=== PATIENT | male | born 1960 ===

== ENCOUNTER 2016-12-24 09:38 | Observation (INO) | payer MEDICAID, SELFPAY ==
[2016-12-24 11:32] LABS: BASO % 0.6 % (0.0-2.0); EOS # 0.2 K/uL (0.0-0.7); EOS % 1.9 % (0.0-4.0); LYMPH # 1.1 K/uL (1.0-4.3); LYMPH % 13.8 % (20.0-40.0); MEAN CELL VOLUME 89.5 fL (80.0-94.0); MEAN CORPUSCULAR HEMOGLOBIN 30.3 pg (27.0-31.0); MEAN CORPUSCULAR HGB CONC 33.8 g/dL (33.0-37.0); MEAN PLATELET VOLUME 7.8 fL (7.2-11.7); MONO # 0.5 K/uL (0.0-0.8); NEUT # 6.4 K/uL (1.8-7.0); NEUT % 77.7 % (50.0-75.0); RBC 5.27 Mil/uL (4.40-5.90); RED CELL DISTRIBUTION WIDTH 13.4 % (11.5-14.5); WHITE BLOOD COUNT 8.3 K/uL (4.8-10.8)
[2016-12-24 11:39] LABS: PROTHROMBIN TIME 11.7 SECONDS (9.7-12.2)
[2016-12-24 11:45] LABS: ALBUMIN 4.3 g/dL (3.5-5.0)
[2016-12-24 11:47] LABS: GFR AFRICAN-AMERICAN > 60; GFR NON-AFRICAN AMERICAN > 60
[2016-12-24 11:48] LABS: ALB/GLOB RATIO 1.1 (1.0-2.1); ALT/SGPT 36 U/L (21-72); AST/SGOT 21 U/L (17-59); BLOOD UREA NITROGEN 15 mg/dL (9-20)
[2016-12-24 11:49] LABS: CALCIUM 9.8 mg/dl (8.6-10.4)
--- NOTE | 2016-12-24 12:08 | C.PDOC ---
History Of Present Illness 56 year old male who presents to the ER with a complaint of left sided chest pain worsening over the past 2 days. Patient reports that the pain is L sided with some radiation to the back. He reports that the pain is worse with exertion and movement. Patient reports a syncopal episode 1 week ago while using the bathroom; he notes he did not go for an evaluation. Patient also reports he has not followed up with optical coating technician for his symptoms. Denies SOB, headache, nausea, vomiting, abdominal pain Time Seen by Provider: 12/24/16 11:38 Chief Complaint (Nursing): Chest Pain History Per: Patient History/Exam Limitations: no limitations Onset/Duration Of Symptoms: Days Current Symptoms Are (Timing): Still Present Associated Symptoms: Syncope (1 week ago). denies: Nausea, Dyspnea, Diaphoresis Modifying Factors: None Exacerbating Factors: None Alleviating Factors: None Recent travel outside of the [place]: No Past Medical History Reviewed: Historical Data, Nursing Documentation, Vital Signs Vital Signs: Last Vital Signs Temp 98.2 F 12/24/16 15:35 Pulse 70 12/24/16 15:35 Resp 18 12/24/16 15:35 BP 116/82 12/24/16 15:35 Pulse Ox 99 12/24/16 16:54 - Medical History PMH: No Chronic Diseases Surgical History: Appendectomy Family History: States: Unknown Family Hx - Social History Hx Tobacco Use: No Hx Alcohol Use: No Hx Substance Use: No - Immunization History Hx Tetanus Toxoid Vaccination: No Hx Influenza Vaccination: No Hx Pneumococcal Vaccination: No Review Of Systems Constitutional: Negative for: Fever, Chills Cardiovascular: Positive for: Chest Pain, Light Headedness (syncope last week). Negative for: Palpitations, Edema Respiratory: Negative for: Cough, Shortness of Breath, SOB with Excertion, Wheezing Gastrointestinal: Negative for: Nausea, Vomiting, Abdominal Pain, Diarrhea, Constipation Genitourinary: Negative for: Dysuria Musculoskeletal: Negative for: Neck Pain, Back Pain Neurological: Negative for: Weakness, Numbness Physical Exam - Physical Exam Appears: Well, Non-toxic Skin: Normal Color, Warm, Dry Head: Atraumatic, Normacephalic Eye(s): bilateral: Normal Inspection, PERRL, EOMI Oral Mucosa: Moist Neck: Normal, Supple Chest: Symmetrical, No Tenderness Cardiovascular: Rhythm Regular, No Murmur Respiratory: Normal Breath Sounds, No Rales, No Rhonchi, No Wheezing Gastrointestinal/Abdominal: Soft, No Tenderness, No Mass, No Distention Back: Normal Inspection Extremity: Normal ROM Neurological/Psych: Oriented x3, Normal Speech, Normal Cognition Gait: Steady ED Course And Treatment - Laboratory Results Result Diagrams: 12/24/16 11:26 12/24/16 11:26 ECG: Interpreted By Me, Viewed By Me ECG Rhythm: Sinus Rhythm ECG Interpretation: Normal Interpretation Of ECG: Normal intervals, no ST/T changes. Rate From EC O2 Sat by Pulse Oximetry: 99 (Room air) Pulse Ox Interpretation: Normal Medical Decision Making Medical Decision Making: Blood work and CXR ordered. Aspirin administered. Differential Pneumothorax vs ACS vs PE Cxray negative. Trop x 1 negative. CTA negative for dissection or PE. Patient denies Hx of HTN, DM, tobacco use, or cocaine use and ekg shows NSR at 71 bpm with normal intervals and no ST changes. Chest pain is worse with exertion vs movement that could be musculoskeletal vs cardiac etiology. Patient has recent syncope, which could be vasovagal but could be cardiac etiology. Patient has no insurance and unable to follow-up with any doctor, therefore will transfer to tele observation. Dr. Freeman, hospitalist aware. Disposition - Disposition Disposition: HOSPITALIZED Disposition Time: 09:52 Condition: FAIR - Clinical Impression Clinical Impression: Chest pain - Scribe Statement The provider has reviewed the documentation as recorded by the Scribe Juan Alberto Ruiz All medical record entries made by the Scribe were at my direction and personally dictated by me. I have reviewed the chart and agree that the record accurately reflects my personal performance of the history, physical exam, medical decision making, and the department course for this patient. I have also personally directed, reviewed, and agree with the discharge instructions and disposition.
--- NOTE | 2016-12-24 12:40 | RAD ---
HISTORY: chest pain COMPARISON: No prior. TECHNIQUE: Chest PA and lateral FINDINGS: LUNGS: Poor inspiration with low lung with volumes, mild crowded bronchovascular markings and mild bibasilar atelectasis PLEURA: No significant pleural effusion identified. No pneumothorax apparent. CARDIOVASCULAR: Normal. OSSEOUS STRUCTURES: No significant abnormalities. VISUALIZED UPPER ABDOMEN: Normal. OTHER FINDINGS: None. IMPRESSION: Poor inspiration with low lung with volumes, mild crowded bronchovascular markings and mild bibasilar atelectasis
--- NOTE | 2016-12-24 15:27 | CT ---
PROCEDURE: CT Chest with contrast (Pulmonary Angiogram) HISTORY: chest pain COMPARISON: None available. TECHNIQUE: Axial computed tomography images were obtained of the chest in the pulmonary arterial phase of enhancement. Coronal and sagittal reformatted images were created and reviewed. Intravenous contrast dose: 100 mL Visipaque 320 Radiation dose: Total exam DLP = 520.27 mGy-cm. This CT exam was performed using one or more of the following dose reduction techniques: Automated exposure control, adjustment of the mA and/or kV according to patient size, and/or use of iterative reconstruction technique. FINDINGS: PULMONARY ARTERIES: Unremarkable. No pulmonary embolism. AORTA: No acute findings. No thoracic aortic aneurysm. LUNGS: Unremarkable. No nodule, mass or pulmonary consolidation. PLEURAL SPACES: Unremarkable. No effusion or pneuomothorax. HEART: Unremarkable. No cardiomegaly. No significant pericardial effusion. LYMPH NODES: No lymphadenopathy. BONES, CHEST WALL: Unremarkable. No fracture or destructive lesion OTHER FINDINGS: Unremarkable. IMPRESSION: No evidence of pulmonary embolism. Unremarkable CT examination of the chest.
--- NOTE | 2016-12-24 18:04 | CP.PCM.HP ---
<AbNancy LambertStephanie - Last Filed: 12/24/16 17:53> History of Present Illness - History of Present Illness History of Present Illness: cc: chest and back pain Patient is a 56 M who comes into the ED for chest and back pain for the past 3 days. Last week patient had a syncopal episode with loss of consciousness. Patient was sitting on the toilet and fell onto the floor. Girlfriend heard the fall and thinks patient was out for less than 2 minutes. Patient remembered falling and was not confused when he woke up. 911 was called and EMS came. Systolic BP was 170. Patient decided not to go to ED. Two days later the chest pain started. The pain is reproduced in the chest and back when he turns his body to the left. Patient denies headache, dizziness, change in vision, shortness of breath, palpitations, nausea, vomiting, constipation, or diarrhea. PMD: Dr. 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 absent: Chest Pain with Activity, Claudication, Diaphoresis, Edema - Respiratory Respiratory: absent: Pain on Inspiration, Chest Congestion - Gastrointestinal Gastrointestinal: absent: Abdominal Pain, Bloating, Change in Stool Character, Constipation, Cramping, Diarrhea - Genitourinary Genitourinary: absent: Change in Urinary Stream, Difficulty Urinating, Urinary Incontinence, Urinary Hesitance, Urinary Urgency - Musculoskeletal Musculoskeletal: Muscle Cramps. absent: Muscle Weakness, Stiffness - Integumentary Integumentary: absent: Changing Lesions, Rash - Neurological Neurological: Syncope. absent: Dizziness, Headaches, Loss of Vision, Vertigo - Endocrine Endocrine: absent: Change in Body Appearance, Deepening of Voice - Hematologic/Lymphatic Hematologic: absent: Easy Bleeding, Easy Bruising, Lymphadenopathy Past Patient History - Past Social History Smoking Status: Never Smoked - INTEGUMENTARY Hx Psoriasis: Yes - PSYCHIATRIC Hx Substance Use: No - SURGICAL HISTORY Hx Appendectomy: Yes - ANESTHESIA Hx Anesthesia: Yes Hx Anesthesia Reactions: No Meds Allergies/Adverse Reactions: Allergies Allergy/AdvReac Type Severity Reaction Status Date / Time No Known Allergies Allergy Unverified 06/12/14 12:00 Physical Exam - Constitutional Appears: Well, Non-toxic, No Acute Distress - Head Exam Head Exam: ATRAUMATIC, NORMAL INSPECTION, NORMOCEPHALIC - Eye Exam Eye Exam: EOMI, Normal appearance, PERRL - ENT Exam ENT Exam: Mucous Membranes Moist, Normal Exam - Neck Exam Neck exam: Positive for: Normal Inspection - Respiratory Exam Respiratory Exam: Clear to Auscultation Bilateral, NORMAL BREATHING PATTERN. absent: Rales, Rhonchi, Wheezes, Respiratory Distress, Stridor - Cardiovascular Exam Cardiovascular Exam: REGULAR RHYTHM, RRR. absent: Gallop, Rubs, Systolic Murmur Additional comments: chest and back pain reproduced when turning left - GI/Abdominal Exam GI & Abdominal Exam: Normal Bowel Sounds. absent: Distended, Firm, Guarding - Extremities Exam Extremities exam: Positive for: normal inspection. Negative for: calf tenderness, pedal edema, tenderness - Back Exam Back exam: NORMAL INSPECTION Additional comments: left subscapular tenderness - Psychiatric Exam Psychiatric exam: Normal Affect, Normal Mood - Skin Skin Exam: Intact, Normal Color, Warm Results - Vital Signs Recent Vital Signs: Last Vital Signs Temp 97.8 F 12/24/16 17:06 Pulse 74 12/24/16 17:06 Resp 18 12/24/16 17:06 BP 121/77 12/24/16 17:06 Pulse Ox 97 12/24/16 17:06 - Labs Result Diagrams: 12/24/16 11:26 12/24/16 11:26 Assessment & Plan - Assessment and Plan (Free Text) Assessment: 1. Chest Pain admit to telemetry first troponin negative EKG in ER: NSR troponin and ekg at 5:30, troponin and ekg at 11:30 2. S/P Syncopal Episode with fall stat head CT w/o contrast bilateral carotid dopplers vit b12, folic acid, RPR, BMP, Mag, Phos, TSH, T4 Echo 3. Elevated D Dimer negative CTA chest likely due to activity ( patient did chest workout with bench pressing last week ) Well's Criteria: 0 4. Prophylatic Measure SCDs Protonix 40 mg PO daily <Bryson Freeman - Last Filed: 12/24/16 21:26> Results - Vital Signs Recent Vital Signs: Last Vital Signs Temp 98.1 F 12/24/16 18:16 Pulse 72 12/24/16 18:16 Resp 18 12/24/16 18:16 BP 124/87 12/24/16 18:16 Pulse Ox 94 L 12/24/16 18:16 - Labs Result Diagrams: 12/24/16 11:26 12/24/16 11:26 Labs: Laboratory Results - last 24 hr 12/24/16 19:11 Total Creatine Kinase 46 L CK-MB (Mass) 0.35 Troponin I, Quant < 0.0120 Attending/Attestation - Attestation I have personally seen and examined this patient.: Yes I have fully participated in the care of the patient.: Yes I have reviewed all pertinent clinical information: Yes Notes (Text): 12/24/16 21:25 Patient was seen and examined at 7:15 PM 12/24/16 History, Exam, and Assessment and Plan were thoroughly gone over with the Process Design Engineer. Will likely discharge patient afternoon 12/25/16 once workup is complete. Bryson Freeman D.O.
--- NOTE | 2016-12-24 18:40 | CT ---
PROCEDURE: CT HEAD WITHOUT CONTRAST. HISTORY: fall COMPARISON: None available. TECHNIQUE: Axial computed tomography images were obtained through the head/brain without intravenous contrast. Radiation dose: Total exam DLP = 752.78 mGy-cm. This CT exam was performed using one or more of the following dose reduction techniques: Automated exposure control, adjustment of the mA and/or kV according to patient size, and/or use of iterative reconstruction technique. FINDINGS: HEMORRHAGE: No intracranial hemorrhage. BRAIN: No mass effect or edema. No atrophy or chronic microvascular ischemic changes. VENTRICLES: Unremarkable. No hydrocephalus. CALVARIUM: Unremarkable. PARANASAL SINUSES: Unremarkable as visualized. No significant inflammatory changes. MASTOID AIR CELLS: Unremarkable as visualized. No inflammatory changes. OTHER FINDINGS: None. IMPRESSION: No evidence of acute intracranial hemorrhage mass effect or midline shift.
[2016-12-24 19:32] LABS: CK-MB 0.35 ng/mL (0.0-3.38)
[2016-12-24] MEDS ORDERED: Pantoprazole 40 mg EC Tab PO ONE (19:39)
[2016-12-24] MEDS: Pantoprazole 40 mg EC Tab PO SCH (19:40)
[2016-12-24 23:53] LABS: CK-MB 0.36 ng/mL (0.0-3.38)
[2016-12-25 02:44] VITALS: BP 109/67; RESP 20; TEMP 97.6; O2SAT 97
--- NOTE | 2016-12-25 10:31 | CP.PCM.DIS ---
<Nancy Berger - Last Filed: 12/25/16 11:13> Provider - Provider Date of Admission: 12/24/16 15:40 Attending physician: Bryson Freeman MD Primary care physician: Dr. Barrett Time Spent in preparation of Discharge (in minutes): 45 Diagnosis - Discharge Diagnosis (1) Chest pain Status: Acute Comment: musculoskeletal pain Hospital Course - Lab Results Lab Results: Most Recent Lab Values WBC 8.3 K/uL (4.8-10.8) 12/24/16 11:26 RBC 5.27 Mil/uL (4.40-5.90) 12/24/16 11:26 Hgb 16.0 g/dL (12.0-18.0) 12/24/16 11:26 Hct 47.2 % (35.0-51.0) 12/24/16 11:26 MCV 89.5 fL (80.0-94.0) 12/24/16 11:26 MCH 30.3 pg (27.0-31.0) 12/24/16 11:26 MCHC 33.8 g/dL (33.0-37.0) 12/24/16 11:26 RDW 13.4 % (11.5-14.5) 12/24/16 11:26 Plt Count 279 K/uL (130-400) 12/24/16 11:26 MPV 7.8 fL (7.2-11.7) 12/24/16 11:26 Neut % (Auto) 77.7 % (50.0-75.0) H 12/24/16 11:26 Lymph % (Auto) 13.8 % (20.0-40.0) L 12/24/16 11:26 [place] % (Auto) 6.0 % (0.0-10.0) 12/24/16 11:26 Eos % (Auto) 1.9 % (0.0-4.0) 12/24/16 11:26 Baso % (Auto) 0.6 % (0.0-2.0) 12/24/16 11:26 Neut # 6.4 K/uL (1.8-7.0) 12/24/16 11:26 Lymph # 1.1 K/uL (1.0-4.3) 12/24/16 11:26 [place] # 0.5 K/uL (0.0-0.8) 12/24/16 11:26 Eos # 0.2 K/uL (0.0-0.7) 12/24/16 11:26 Baso # 0.0 K/uL (0.0-0.2) 12/24/16 11:26 PT 11.7 SECONDS (9.7-12.2) 12/24/16 11:26 INR 1.0 12/24/16 11:26 APTT 32 SECONDS (21-34) 12/24/16 11:26 D-Dimer, Quantitative 307 ng/mlDDU (0-243) H 12/24/16 12:20 Sodium 142 mmol/L (132-148) 12/24/16 11:26 Potassium 4.6 mmol/L (3.6-5.2) 12/24/16 11:26 Chloride 102 mmol/L (98-107) 12/24/16 11:26 Carbon Dioxide 28 mmol/L (22-30) 12/24/16 11:26 Anion Gap 17 (10-20) 12/24/16 11:26 BUN 15 mg/dL (9-20) 12/24/16 11:26 Creatinine 0.8 MG/DL (0.8-1.5) 12/24/16 11:26 Est GFR ( Amer) > 60 12/24/16 11:26 Est GFR (Non-Af Amer) > 60 12/24/16 11:26 Random Glucose 96 mg/dL (75-110) 12/24/16 11:26 Calcium 9.8 mg/dl (8.6-10.4) 12/24/16 11:26 Total Bilirubin 0.8 mg/dL (0.2-1.3) 12/24/16 11:26 AST 21 U/L (17-59) 12/24/16 11:26 ALT 36 U/L (21-72) 12/24/16 11:26 Alkaline Phosphatase 78 U/L (38-126) 12/24/16 11:26 Total Creatine Kinase 31 U/L (55-170) L 12/24/16 23:30 CK-MB (Mass) 0.36 ng/mL (0.0-3.38) 12/24/16 23:30 Troponin I < 0.0120 ng/mL (0.00-0.120) 12/24/16 11:26 Troponin I, Quant < 0.0120 ng/mL (0.00-0.120) 12/24/16 23:30 NT-Pro-B Natriuret Pep 40.5 pg/mL (0-900) 12/24/16 12:20 Total Protein 8.1 g/dL (6.3-8.3) 12/24/16 11:26 Albumin 4.3 g/dL (3.5-5.0) 12/24/16 11:26 Globulin 3.8 gm/dL (2.2-3.9) 12/24/16 11:26 Albumin/Globulin Ratio 1.1 (1.0-2.1) 12/24/16 11:26 - Hospital Course Hospital Course: cc: chest and back pain Patient is a 56 M who comes into the ED for chest and back pain for the past 3 days. Last week patient had a syncopal episode with loss of consciousness. Patient was sitting on the toilet and fell onto the floor. Girlfriend heard the fall and thinks patient was out for less than 2 minutes. Patient remembered falling and was not confused when he woke up. 911 was called and EMS came. Systolic BP was 170. Patient decided not to go to ED. Two days later the chest pain started. The pain is reproduced in the chest and back when he turns his body to the left. Patient denies headache, dizziness, change in vision, shortness of breath, palpitations, nausea, vomiting, constipation, or diarrhea. Patient admitted to telemetry to rule out NH/ acute coronary syndrome. The first troponin was negative and EKG was normal sinus rhythm in the ER. The next two set of troponins were negative and EKGs were normal. Carotid dopplers were negative. Echo prelimary read showed mild tricuspid regurg, mild pulmonary insufficiency and normal LV function. The D Dimer was elevated in the ER probably due to physical strain (patient works out a lot and did chest work out and bench pressing last week). The CTA of the chest was negative for aortic dissection and PE. Well's Criteria was zero. Patient is stable for discharge. Patient stable for discharge as per Dr. Freeman Please follow instructions below. This is a summary of the hospital course, please see chart for full details. Discharge Exam - Head Exam Head Exam: ATRAUMATIC, NORMAL INSPECTION, NORMOCEPHALIC - Eye Exam Eye Exam: EOMI, Normal appearance, PERRL - ENT Exam ENT Exam: Mucous Membranes Moist - Neck Exam Neck exam: Full Rom, Normal Inspection - Respiratory Exam Respiratory Exam: Clear to PA & Lateral, NORMAL BREATHING PATTERN, UNREMARKABLE. absent: Prolonged Expiratory Phase, Rales, Rhonchi, Wheezes, Stridor - Cardiovascular Exam Cardiovascular Exam: REGULAR RHYTHM, RRR. absent: Gallop, Rubs, Systolic Murmur Additional comments: mild left pectoral muscular pain with left twisting - GI/Abdominal Exam GI & Abdominal Exam: Normal Bowel Sounds, Soft. absent: Distended, Firm, Guarding - Extremities Exam Extremities exam: normal inspection - Back Exam Back exam: NORMAL INSPECTION, paraspinal tenderness Additional comments: left sided upper paraspinal tenderness, left subscapular pain - Neurological Exam Neurological exam: Alert, Oriented x3 - Psychiatric Exam Psychiatric exam: Normal Affect, Normal Mood - Skin Skin Exam: Intact, Normal Color, Warm Discharge Plan - Follow Up Plan Condition: FAIR Disposition: HOME/ ROUTINE Additional Instructions: Patient is stable for discharge. 1). Follow up with your Primary Care Physician DR. Cathryn Campuzano in the next 7 days. 2). Through Dr. Campuzano' office obtain the results of your blood work results that are pending: HgBA1C, Lipid Panel, ESR, TSH, T4, PSA, Vitamin D, Vitamin B12, Folic Acid. 3). Through Dr. Campuzano' office obtain the official report for the Echocardiogram (preliminary was unremarkable). 4). Through Dr. Campuzano' office you will need further evaluation by Neurologist for your episode of syncope (passing out). 5). You may use over the counter Ibuprofen 200 mg 1 tablet by mouth every 6 hours as needed for the left sided back pain. Please make sure that you have some food in your stomach prior to taking this medication and please make sure that you drink plenty of water afterwards. 6). Please make sure that you are warming up and stretching prior to lifting weights. IF the back pain persists you will need further evaluation through Dr. Campuzano' office. 7). Please take care. If symptoms worsen please return to Emergency Room Immediately Referrals: Cathryn Campuzano MD [Medical Doctor] - <Bryson Freeman - Last Filed: 12/25/16 11:19> Provider - Provider Date of Admission: 12/24/16 15:40 Attending physician: Bryson Freeman MD Hospital Course - Lab Results Lab Results: Most Recent Lab Values WBC 8.3 K/uL (4.8-10.8) 12/24/16 11:26 RBC 5.27 Mil/uL (4.40-5.90) 12/24/16 11:26 Hgb 16.0 g/dL (12.0-18.0) 12/24/16 11:26 Hct 47.2 % (35.0-51.0) 12/24/16 11:26 MCV 89.5 fL (80.0-94.0) 12/24/16 11:26 MCH 30.3 pg (27.0-31.0) 12/24/16 11:26 MCHC 33.8 g/dL (33.0-37.0) 12/24/16 11:26 RDW 13.4 % (11.5-14.5) 12/24/16 11:26 Plt Count 279 K/uL (130-400) 12/24/16 11:26 MPV 7.8 fL (7.2-11.7) 12/24/16 11:26 Neut % (Auto) 77.7 % (50.0-75.0) H 12/24/16 11: Lymph % (Auto) 13.8 % (20.0-40.0) L 12/24/16 11:26 [place] % (Auto) 6.0 % (0.0-10.0) 12/24/16 11:26 Eos % (Auto) 1.9 % (0.0-4.0) 12/24/16 11:26 Baso % (Auto) 0.6 % (0.0-2.0) 12/24/16 11:26 Neut # 6.4 K/uL (1.8-7.0) 12/24/16 11:26 Lymph # 1.1 K/uL (1.0-4.3) 12/24/16 11:26 [place] # 0.5 K/uL (0.0-0.8) 12/24/16 11:26 Eos # 0.2 K/uL (0.0-0.7) 12/24/16 11:26 Baso # 0.0 K/uL (0.0-0.2) 12/24/16 11:26 PT 11.7 SECONDS (9.7-12.2) 12/24/16 11:26 INR 1.0 12/24/16 11:26 APTT 32 SECONDS (21-34) 12/24/16 11:26 D-Dimer, Quantitative 307 ng/mlDDU (0-243) H 12/24/16 12:20 Sodium 142 mmol/L (132-148) 12/24/16 11:26 Potassium 4.6 mmol/L (3.6-5.2) 12/24/16 11:26 Chloride 102 mmol/L (98-107) 12/24/16 11:26 Carbon Dioxide 28 mmol/L (22-30) 12/24/16 11:26 Anion Gap 17 (10-20) 12/24/16 11:26 BUN 15 mg/dL (9-20) 12/24/16 11:26 Creatinine 0.8 MG/DL (0.8-1.5) 12/24/16 11:26 Est GFR ( Amer) > 60 12/24/16 11:26 Est GFR (Non-Af Amer) > 60 12/24/16 11:26 Random Glucose 96 mg/dL (75-110) 12/24/16 11:26 Calcium 9.8 mg/dl (8.6-10.4) 12/24/16 11:26 Total Bilirubin 0.8 mg/dL (0.2-1.3) 12/24/16 11:26 AST 21 U/L (17-59) 12/24/16 11:26 ALT 36 U/L (21-72) 12/24/16 11:26 Alkaline Phosphatase 78 U/L (38-126) 12/24/16 11:26 Total Creatine Kinase 31 U/L (55-170) L 12/24/16 23:30 CK-MB (Mass) 0.36 ng/mL (0.0-3.38) 12/24/16 23:30 Troponin I < 0.0120 ng/mL (0.00-0.120) 12/24/16 11:26 Troponin I, Quant < 0.0120 ng/mL (0.00-0.120) 12/24/16 23:30 NT-Pro-B Natriuret Pep 40.5 pg/mL (0-900) 12/24/16 12:20 Total Protein 8.1 g/dL (6.3-8.3) 12/24/16 11:26 Albumin 4.3 g/dL (3.5-5.0) 12/24/16 11:26 Globulin 3.8 gm/dL (2.2-3.9) 12/24/16 11:26 Albumin/Globulin Ratio 1.1 (1.0-2.1) 12/24/16 11:26 Attending/Attestation - Attestation I have personally seen and examined this patient.: Yes I have fully participated in the care of the patient.: Yes I have reviewed all pertinent clinical information, including history, physical exam and plan: Yes
--- NOTE | 2016-12-25 11:04 | CP.PCM.PN ---
Subjective - Date & Time of Evaluation Date of Evaluation: 12/25/16 Time of Evaluation: 10:45 - Subjective Subjective: 56 year old male who was admitted for further evaluation of Atypical Chest Pain on 12/24/16. Currrently upon FULL ROS there is NO chest pain, NO palpitations, NO SOB/Cough/ Wheezing, NO abdominal pain, NO n/v/d/c, NO burning/pain with urination, NO lightheadedness/dizziness, NO headache, NO new changes in vision, NO new changes in hearing, NO paresthesias, NO diaphoresis. Still complains of back pain when rotating towards the left Exam: HEENT: NCA, EOMI, PERRLA, NO lymphadenopathy, NO thyromegaly, NO pharyngeal erythema/exudate Cardio: NS1 and NS2, NO M/R/G Resp: CTA B/L, NO R/R/W GI: BSx4 are decreased, NT, ND, NO HSM, NO guarding rebound tenderness Ext: Pulses are strong and equal, Capillary Refill is 2 seconds, NO edema Neuro: CN II through XII are grossly intact Troponin x [address] Head is negative for any acute process CT Chest did NOT show PE or dissection Vitals are stable Blood Work was unremarkable Patient is stable for discharge. The following instructions will be included in the discharge summary to be performed by the [facility] [employer]: 1). Follow up with your Primary Care Physician DR. Cathryn Campuzano in the next 7 days. 2). Through Dr. Campuzano' office obtain the results of your blood work results that are pending: HgBA1C, Lipid Panel, ESR, TSH, T4, PSA, Vitamin D, Vitamin B12, Folic Acid. 3). Through Dr. Campuzano' office obtain the official report for the Echocardiogram (preliminary was unremarkable). 4). Throug Dr. Campuzano' office you will need further evaluation by Neurologist for your episode of syncope (passing out). 5). You may use over the counter Ibuprofen 200 mg 1 tablet by mouth every 6 hours as needed for the left sided back pain. Please make sure that you have some food in your stomach prior to taking this medication and please make sure that you drink plenty of water afterwards. 6). Please make sure that you are warming up and stretching prior to lifting weights. IF the back pain persists you will need further evaluation through Dr. Campuzano' office. 7). Please take care. Bryson Freeman D.O. Objective - Vital Signs/Intake and Output Vital Signs (last 24 hours): Temp Pulse Resp BP Pulse Ox 97.6 F 61 20 109/67 97 12/25/16 01:32 12/25/16 01:32 12/25/16 01:32 12/25/16 01:32 12/25/16 01:32 - Medications Medications: Current Medications Pantoprazole Sodium (Protonix Ec Tab) 40 mg PO DAILY FRANNY Last Admin: 12/24/16 19:40 Dose: 40 mg - Labs Labs: PT 11.7 SECONDS (9.7-12.2) 12/24/16 11:26 INR 1.0 12/24/16 11:26 APTT 32 SECONDS (21-34) 12/24/16 11:26
[2016-12-25 11:36] LABS: BASO % 0.6 % (0.0-2.0); EOS # 0.2 K/uL (0.0-0.7); EOS % 3.7 % (0.0-4.0); HEMOGLOBIN 14.9 g/dL (12.0-18.0); LYMPH # 1.3 K/uL (1.0-4.3); MEAN CELL VOLUME 89.9 fL (80.0-94.0); MEAN CORPUSCULAR HEMOGLOBIN 30.4 pg (27.0-31.0); MEAN CORPUSCULAR HGB CONC 33.8 g/dL (33.0-37.0); MEAN PLATELET VOLUME 8.1 fL (7.2-11.7); MONO # 0.4 K/uL (0.0-0.8); MONO % 7.1 % (0.0-10.0); NEUT # 4.3 K/uL (1.8-7.0); NEUT % 68.6 % (50.0-75.0); RBC 4.91 Mil/uL (4.40-5.90); RED CELL DISTRIBUTION WIDTH 13.2 % (11.5-14.5); WHITE BLOOD COUNT 6.3 K/uL (4.8-10.8)
[2016-12-25 11:51] LABS: GFR AFRICAN-AMERICAN > 60; GFR NON-AFRICAN AMERICAN > 60
[2016-12-25 11:52] LABS: BLOOD UREA NITROGEN 17 mg/dL (9-20); CALCIUM 8.9 mg/dl (8.6-10.4)
[2016-12-25 11:53] LABS: MAGNESIUM 1.9 mg/dL (1.6-2.3)
[2016-12-25 12:13] LABS: T4 8.31 ug/dL (5.5-11.0)
[2016-12-25] MEDS: Pantoprazole 40 mg EC Tab PO SCH (12:23)
[2016-12-25 12:26] LABS: T3 1.59 nmol/L (1.49-2.60)
[2016-12-25 12:33] LABS: T4 8.37 ug/dL (5.5-11.0)
[2016-12-25 12:59] LABS: FOLATE 13.6 ng/mL
[2016-12-25 13:22] LABS: FOLATE 12.5 ng/mL
[2016-12-25 18:40] VITALS: PULSE 60
--- NOTE | 2016-12-26 14:21 | CARD ---
APPROVED REPORT EKG Measurement Heart [id number] <Conclusion> Normal sinus rhythm Normal ECG
[2016-12-26 22:47] LABS: TOTAL PSA 1.4 ng/mL (<=4.0)
--- NOTE | 2016-12-27 10:15 | VASCLAB ---
PROCEDURE: HISTORY: syncopal episode with fall COMPARISON: None available. TECHNIQUE: Grayscale and duplex Doppler evaluation of the cervical carotid and vertebral arteries were performed. The common carotid, carotid bifurcations and cervical Internal Carotid Artery (ICA) and proximal External Carotid Artery (ECA) were evaluated. The vertebral arteries were evaluated for gross patency and flow direction. Report prepared by Juan Alberto Chandler, BS, RVT FINDINGS: RIGHT CAROTID ARTERIES: 1. Common Carotid Artery: No significant focal plaque formation of the right common carotid artery. Maximum Peak Systolic velocity: 89 cm/sec: End-diastolic velocity 29 cm/sec. 2. Carotid Bifurcation: plaque formation. Maximum Peak Systolic velocity: 69 cm/sec: End-diastolic velocity 27 cm/sec. 3. Internal Carotid Artery: Plaque description: 3.1. Proximal Segment: Peak systolic velocity 57 cm/sec: End-diastolic velocity 22 cm/sec - % stenosis 0-15% 3.2. Middle Segment: Peak systolic velocity 62 cm/sec: End-diastolic velocity 25 cm/sec - % stenosis 0-15% 3.3. Distal Segment: Peak systolic velocity 40 cm/sec: End-diastolic velocity 19 cm/sec - % stenosis 0-15% 4. External Carotid Artery: No significant focal plaque formation. Peak systolic velocity 98 cm/sec 5. ICA/CCA Ratio: 0.8 LEFT CAROTID ARTERIES: 1. Common Carotid Artery: No significant focal plaque formation of the left common carotid artery. Maximum Peak Systolic velocity: 78 cm/sec: End-diastolic velocity 22 cm/sec. 2. Carotid Bifurcation: plaque formation. Maximum Peak Systolic velocity: 75 cm/sec: End-diastolic velocity 24 cm/sec. 3. Internal Carotid Artery: Plaque description: 3.1. Proximal Segment: Peak systolic velocity 68 cm/sec: End-diastolic velocity 29 cm/sec - % stenosis 0-15% 3.2. Middle Segment: Peak systolic velocity 57 cm/sec: End-diastolic velocity 28 cm/sec - % stenosis 0-15% 3.3. Distal Segment: Peak systolic velocity 51 cm/sec: End-diastolic velocity 24 cm/sec - % stenosis 0-15% 4. External Carotid Artery: No significant focal plaque formation. Peak systolic velocity 116 cm/sec 5. ICA/CCA Ratio: 1.0 VERTEBRAL ARTERIES: 1. Right Vertebral Artery: The right vertebral artery flow direction is antegrade. 2. Left Vertebral Artery: The left vertebral artery flow direction is antegrade. OTHER FINDINGS: 1. Right Brachial Blood pressure: 136 mmHg. 2. Left Brachial Blood pressure: 130 mmHg. IMPRESSION: RIGHT: Duplex scan does not suggest hemodynamically significant stenosis of the right extracranial carotid arteries. LEFT: Duplex scan does not suggest hemodynamically significant stenosis of the left extracranial carotid arteries.
--- NOTE | 2016-12-28 07:45 | CARD ---
APPROVED REPORT EXAM: Two-dimensional and M-mode echocardiogram with Doppler and color Doppler. Other Information Quality : GoodRhythm : NSR INDICATION Chest Pain syncopal episode M-Mode DIMENSIONS RVDd2.43 (2.1-3.2cm)Left Atrium (MM)4.06 (2.5-4.0cm) IVSd0.87 (0.7-1.1cm)Aortic Root3.05 (2.2-3.7cm) LVDd4.65 (4.0-5.6cm)Aortic Cusp Exc.2.22 (1.5-2.0cm) PWd0.97 (0.7-1.1cm)FS (%) 26 % LVDs3.44 (2.0-3.8cm)LVEF (%)51 (>50%) Mitral Valve MV E Jjyfqnmz88.6cm/sMV A Zffkkrac61.7cm/sE/A ratio1.0 TDI E/Lateral E'0.0E/Medial E'0.0 Tricuspid Valve TR Peak [id number]/sTR Peak [id number] <Conclusion> Left ventricle: thickness: normal; size: normal; overall ejection fraction: 60%: diastolic filling pressures: normal Mitral valve: annulus: normal: leaflets: normal: excursion: normal; no significant trans-mitral gradient: no significant incompetence: left atrium: dilated Aortic valve: leaflets: normal: excursion: normal; no significant trans-aortic gradient: No significant incompetence: aortic root: normal Right sided Structures: Pulmonary valve: normal; mild incompetence; Tricuspid valve: normal; no significant incompetence: Intra-cardiac hemodynamics: pulmonary systolic pressures: 32mmHg; central venous pressures: normal No pericardial effusion
== END 2016-12-25 16:50 | disposition home or self-care (01) ==
LOC: C.ER 09:38 → C.9E 15:40 → C.5T 22:43
PROVIDERS: ADMIT Family Medicine; ATTEND Family Medicine
DX: R07.89 Other chest pain (principal); Z87.891 Personal history of nicotine dependence
CPT/HCPCS: 36415; 70450; 71020; 71275; 80048; 80053; 80061; 82306; 82607; 82746; 83036; 83735; 83880; 84100; 84153; 84154; 84436; 84443; 84480; 84484; 85025; 85378; 85610; 85651; 85730; 86140; 86592; 93306; 93880; 96374; G0378; J1885

== ENCOUNTER 2018-08-26 14:13 | Outpatient (CLI) | payer OTHER | END 2018-08-26 14:14 | disposition home or self-care (01) | LOC: C.LAB 14:13 | DX: L40.9 Psoriasis, unspecified (principal) ==

== ENCOUNTER 2018-09-22 14:11 | Outpatient (CLI) | payer OTHER | END 2018-09-22 14:12 | disposition home or self-care (01) | LOC: C.LAB 14:11 ==

== ENCOUNTER 2018-09-30 10:05 | Outpatient (CLI) | payer OTHER | END 2018-09-30 10:06 | disposition home or self-care (01) | LOC: C.USIC 10:06 ==